=== PATIENT | female | born 1995 | race African-American/Black ===

== ENCOUNTER 2018-02-09 19:23 | Emergency (ER) | payer SELFPAY ==
[~2018-02-09] VITALS: Ht 167.6 cm; Wt 59.0 kg
[2018-02-09 19:46] VITALS: BP 112/66
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
[2018-02-09 20:20] VITALS: BP 112/66
== END 2018-02-09 20:20 | disposition home or self-care (01) ==
LOC: EMR 19:55
DX: S00.03XA Contusion of scalp, initial encounter (principal); S01.81XA Laceration without foreign body of other part of head, initial encounter; W51.XXXA Accidental striking against or bumped into by another person, initial encounter; Y92.9 Unspecified place or not applicable
CPT/HCPCS: 99282